=== PATIENT | female | born 1985 | race African-American/Black ===

== ENCOUNTER 2022-11-06 02:43 | Emergency (ER) | payer SELFPAY ==
[~2022-11-06] VITALS: Ht 175.3 cm; Wt 73.0 kg
[2022-11-06 02:50] VITALS: BP 153/78
== END 2022-11-06 06:00 | disposition left against medical advice (07) ==
LOC: ER 02:43
DX: Z53.21 Procedure and treatment not carried out due to patient leaving prior to being seen by health care provider (principal)

== ENCOUNTER 2023-12-05 00:27 | Emergency (ER) | payer OTHER ==
[~2023-12-05] VITALS: Ht 165.1 cm; Wt 72.0 kg
[~2023-12-05 00:27] MED LIST: LORA10CA PO; METH-371 PO; METO25TA6 PO
[2023-12-05 00:31] VITALS: BP 145/58; TEMP 97.7; O2SAT 100
[2023-12-05 00:36] VITALS: PULSE 107; RESP 20
[2023-12-05 03:46] LABS: HEMOGLOBIN. 13.3 g/dL (12.0-16.0); MEAN CORPUSCULAR HEMOGLOBIN 29.8 pg (28.0-32.0); MEAN CORPUSCULAR HGB CONC 33.2 g/dL (31.0-37.0); MEAN CORPUSCULAR VOLUME 89.8 fL (81.0-99.0); MEAN PLATELET VOLUME 9.4 fl (7.4-10.4); PLATELET 286 x1000/uL (130-400); RED BLOOD CELL COUNT 4.46 mill/uL (4.2-5.4); RED CELL DISTRIBUTION WIDTH 15.3 % (11.6-14.6); WHITE BLOOD COUNT 5.6 x1000/uL (4.5-11.0)
[2023-12-05 03:52] LABS: DIFFERENTIAL COMMENT 1; PROTHROMBIN TIME 11.1 sec (9.6-11.0)
[2023-12-05 04:07] LABS: ALANINE AMINOTRANSFERASE 16 IU/L (10-49); ALBUMIN 4.2 g/dL (3.2-4.8); ASPARTATE AMINOTRANSFERASE 20 IU/L (<34); BILIRUBIN TOTAL 0.3 mg/dL (0.1-1.0); CALCIUM 9.3 mg/dL (8.7-10.4); CARBON DIOXIDE 27 mEq/L (21-32); CHLORIDE 105 mEq/L (98-107); CREATININE 0.5 mg/dL (0.6-1.0); GLUCOSE 103 mg/dL (70-105); HCG SCREEN NEGATIVE; POTASSIUM 4.1 mEq/L (3.5-5.1); PROTEIN TOTAL 7.3 g/dL (6.0-8.3); SODIUM 137 mEq/L (136-145); T4 FREE 3.41 ng/dL (0.89-1.76); THYROID STIMULATING HORMONE < 0.10 uIU/mL (0.55-4.78); TROPONIN I HIGH SENSITIVITY 33 ng/L (3.0-34); UREA NITROGEN BLOOD 11 mg/dL (9-23)
[2023-12-05 04:44] LABS: PLATELET ESTIMATE NORMAL
== END 2023-12-05 08:50 | disposition left against medical advice (07) ==
LOC: ER 00:37 → EDBEDREQ 07:12 → EDBEDREQTM 07:12 → CANBEDREQ 08:49 → ER 08:50
DX: R07.9 Chest pain, unspecified (principal); E05.90 Thyrotoxicosis, unspecified without thyrotoxic crisis or storm
CPT/HCPCS: 36415; 71045; 80053; 84439; 84443; 84484; 84703; 85025; 93005; 99285